=== PATIENT | male | born 1985 | race Caucasian/White ===

== ENCOUNTER → 2017-09-20 | Outpatient (CLI) | payer OTHER ==
[2017-09-20] MEDS: GADOBUTROL 7.5 MMOL/7.5 ML VIAL IV ×2 (09:44)
== END | disposition home or self-care (01) ==
LOC: KCIC MRI 08:34
DX: H47.332 Pseudopapilledema of optic disc, left eye (principal); J34.1 Cyst and mucocele of nose and nasal sinus
CPT/HCPCS: 70543; 70553; A9585